=== PATIENT | male | born 1975 | race Caucasian/White ===

== ENCOUNTER 2021-12-20 14:17 | Outpatient (NON) | payer BC, SELFPAY | END 2021-12-20 14:18 | disposition home or self-care (01) | PROVIDERS: PCP Family Medicine; Visit Provider Surgery Plastic and Reconstructive Surgery | DX: L72.3 Sebaceous cyst (principal); L08.9 Local infection of the skin and subcutaneous tissue, unspecified | CPT/HCPCS: 87070; 87205 ==

== ENCOUNTER 2022-11-13 10:34 | Outpatient (CLI) | payer BC, SELFPAY ==
--- NOTE | ~2022-11-13 | CT_ITS ---
CT of the Abdomen and Pelvis: Indication: Abdominal pain Technique: 2.5 mm axial scans were obtained through the abdomen and pelvis following intravenous adm inistration of 100 cc of Omnipaque 350. Dose reduction technique was used on this scan by utilizing a utomated exposure control and iterative reconstruction technique. The dose-length product (DLP) was 4 91.50 mGy-cm. COMPARISON: 09/03/2016 Findings: Scans through the lung bases demonstrate mild right basilar atelectasis or scarring. The liver, spleen, pancreas, gallbladder, adrenals and kidneys are within normal limits. No evidence of aortic aneurysm. No lymphadenopathy. There is wall thickening and pericolonic inflammatory change of the distal descending colon, centered about a prominent diverticulum, consistent with acute epididymitis. No abscess or free air evident. No bowel obstruction. Images through the pelvis were performed. Urinary bladder unremarkable. Prostate gland and seminal ve sicles are unremarkable. No ascites. Impression: Acute diverticulitis of the distal descending colon. No abscess or free air. Reviewed, dictated and finalized at [facility]. Impression: Acute diverticulitis of the distal descending colon. No abscess or free air.
== END 2022-11-13 10:35 | disposition home or self-care (01) ==
PROVIDERS: PCP Family Medicine; Visit Provider Nurse Practitioner
DX: K57.32 Diverticulitis of large intestine without perforation or abscess without bleeding (principal); R31.9 Hematuria, unspecified
CPT/HCPCS: 74177; 87086; Q9967

== ENCOUNTER 2023-04-15 08:00 | Outpatient (NON) | payer BC, SELFPAY | END 2023-04-15 08:01 | disposition home or self-care (01) | PROVIDERS: PCP Family Medicine; Visit Provider Nurse Practitioner | DX: L72.0 Epidermal cyst (principal) | CPT/HCPCS: 88304 ==

== ENCOUNTER 2023-11-01 00:26 | Day surgery (SDC) | payer BC, SELFPAY ==
[2023-10-21 13:21] VITALS: BMI 26.0
--- NOTE | 2023-10-30 14:58 | SUR.PREOP ---
Patient called regarding upcoming procedure. Reviewed preop instructions, appointment times, and procedure prep.
[2023-11-01 10:59] VITALS: BP 120/73; PULSE 84; RESP 14; TEMP 36.3; O2SAT 98
[2023-11-01] MEDS: LACTATED RINGERS 1,000 ML 150 ML IV CONT (11:06)
--- NOTE | 2023-11-01 11:07 | PM.HPGS ---
History of Present Illness History of Present Illness Consent: Risks, benefits, and alternatives have been discussed and questions answered. Patient agrees to proceed with procedure. Chief complaint: neoplasm screening Narrative: Audie Dixon is a 48 year old male here for first screening colonoscopy Review of Systems Review of Systems: All systems reviewed & are unremarkable except as noted in HPI and below PMFSH Past Medical History Medical History (Updated 11/01/23 @ 11:08 by Shahab Reed MD) Abscess of back Colon cancer screening Diverticulitis (~2015) Dyslipidemia Overweight Thrush, oral Vitamin D deficiency Surgical History Surgical History S/P laparoscopic-assisted sigmoidectomy (~08/2016) Diverticulitis with abscess - Dr Raymond Family History Family History Mother Family history of colonic diverticulitis Other Family history of cardiovascular disease Family history of kidney stones Hypertension Social History Social History Smoking packs per day: 0.25 Smoking cigarettes per day: 5.0 Years smoked: 30 Smoking pack-years: 7.50 Smoking status: Current every day smoker Tobacco type: cigarettes Second hand tobacco smoke exposure: No Smoking end date: 07/29/09 Alcohol intake: current Alcohol use details: socially Substance use: never Substance use type: does not use Lack of Transportation: No Lack of Food: Never True Current Housing: I Have Housing Concerned About Future Housing: No Difficulty Paying Gas/Electric Bills: No Difficulty Paying for Meds: No Currently Unemployed: No Education: High School Diploma/GED Difficulty w/ Childcare or Family Care: No Living arrangements: with family Additional living arrangements comments: Occupation/Education: occupation Gender identity (if verbalized by the patient): Male Sexual Orientation (if Verbalized by the Patient): Straight or Heterosexual Spiritual care concerns: No Agree to blood products: Yes Meds Home Medications and Allergies Home Medications Medication Instructions Recorded Confirmed Type multivitamin 1 tablet PO DAILY 03/21/23 10/21/23 History cholecalciferol (vitamin D3) 1,250 1,250 mcg PO WEEKLY #12 tabs 08/23/23 10/21/23 Rx mcg (50,000 unit) tablet atorvastatin 10 mg tablet (Lipitor) 10 mg PO QHS #90 tabs 09/02/23 10/21/23 Rx fenofibrate 160 mg tablet 160 mg PO DAILY #90 tabs 09/02/23 10/21/23 Rx Allergies Allergy/AdvReac Type Severity Reaction Status Date / Time sulfamethizole Allergy Unknown Skin Verified 11/01/23 10:58 burning trimethoprim Allergy Unknown Skin Verified 11/01/23 10:58 burning Vital Signs Vital Signs - 24 hr 11/01/23 10:59 Temperature 97.4 F L Pulse Rate 84 Respiratory Rate 14 Blood Pressure 120/73 Pulse Oximetry 98 Oxygen Delivery Room Air Exam Const: General: comfortable and no acute distress HENMT: Face/Nose/Sinus: Normal nares present Eyes: General: appearance normal, both eyes and all related structures Neck: Neck: no JVD Resp: Auscultation: clear to auscultation bilaterally Cardio: Rate: regular rate Rhythm: regular rhythm GI: Inspection: non-distended GI Palp: Yes Soft to palpation Skin: General skin exam: normal color Neuro: General: gait normal Speech: normal speech Extrem: General: normal to inspection Psych: Mental Status: mental status grossly normal Assessment and Plan Assessment and plan (1) Colon cancer screening: Code(s): Z12.11 - Encounter for screening for malignant neoplasm of colon Status: Acute Assessment and Plan: colonoscopy
--- NOTE | 2023-11-01 11:09 | WPDANESEPPF ---
Anes - Initial Pre Proc Eval Procedure: Operation Date: 11/01/23 12:30 Proposed Procedures p Screening Colonoscopy - Shahab Reed MD Date/Time: 11/01/23 11:09 Surgeon: Shahab Reed MD Pre Op Diagnosis: neoplasm screening Patient Data Age: 48 Gender: M Height: 1.75 m Weight: 81.9 kg Last Vital Signs Temp 97.4 F L 11/01/23 10:59 Pulse 84 11/01/23 10:59 Resp 14 11/01/23 10:59 BP 120/73 11/01/23 10:59 Pulse Ox 98 11/01/23 10:59 O2 Del Method Room Air 11/01/23 10:59 Allergies Allergy/AdvReac Type Severity Reaction Status Date / Time sulfamethizole Allergy Unknown Skin Verified 11/01/23 10:58 burning trimethoprim Allergy Unknown Skin Verified 11/01/23 10:58 burning Home Medications Medication Instructions Recorded Confirmed Type multivitamin 1 tablet PO DAILY 03/21/23 10/21/23 History cholecalciferol (vitamin D3) 1,250 1,250 mcg PO WEEKLY #12 tabs 08/23/23 10/21/23 Rx mcg (50,000 unit) tablet atorvastatin 10 mg tablet (Lipitor) 10 mg PO QHS #90 tabs 09/02/23 10/21/23 Rx fenofibrate 160 mg tablet 160 mg PO DAILY #90 tabs 09/02/23 10/21/23 Rx Patient hx anesthesia problems: none Family hx anesthesia problems: none Results Review: All pre-operative results and documents have been reviewed as part of the pre-operative evaluation. [facility] Past Medical History Medical History (Updated 11/01/23 @ 11:08 by Shahab Reed MD) Abscess of back Colon cancer screening Diverticulitis (~2015) Dyslipidemia Overweight Thrush, oral Vitamin D deficiency Surgical History Surgical History S/P laparoscopic-assisted sigmoidectomy (~08/2016) Diverticulitis with abscess - Dr Raymond Family History Family History Mother Family history of colonic diverticulitis Other Family history of cardiovascular disease Family history of kidney stones Hypertension Social History Social History Smoking packs per day: 0.25 Smoking cigarettes per day: 5.0 Years smoked: 30 Smoking pack-years: 7.50 Smoking status: Current every day smoker Tobacco type: cigarettes Second hand tobacco smoke exposure: No Smoking end date: 07/29/09 Alcohol intake: current Alcohol use details: socially Substance use: never Substance use type: does not use Lack of Transportation: No Lack of Food: Never True Current Housing: I Have Housing Concerned About Future Housing: No Difficulty Paying Gas/Electric Bills: No Difficulty Paying for Meds: No Currently Unemployed: No Education: High School Diploma/GED Difficulty w/ Childcare or Family Care: No Living arrangements: with family Additional living arrangements comments: Occupation/Education: occupation Gender identity (if verbalized by the patient): Male Sexual Orientation (if Verbalized by the Patient): Straight or Heterosexual Spiritual care concerns: No Agree to blood products: Yes Anes - Eval Final PreProcedure Day of Procedure 11/01/23 11:09 Patient weight: normal Heart: regular rate and rhythm Lungs: clear to auscultation Airway: Mallampati scale class II Neurological: alert and oriented Last oral intake: >/= 8 hours ASA classification: II Emergent: no Anesthetic plan: proceed Anesthesia type and monitoring: general GIVS and standard monitoring Results Review: All pre-operative results and documents have been reviewed as part of the pre-operative evaluation. Informed Consent: The patient's anesthetic plan and its attendant risks and benefits were discussed with the patient/family/POA. Questions were solicited and answers provided to the satisfaction of the patient/family/POA.
[2023-11-01 11:23] VITALS: BP 98/64; PULSE 82; RESP 21; O2SAT 97
[2023-11-01 11:33] VITALS: BP 110/60; PULSE 79; RESP 19; O2SAT 98
[2023-11-01 11:43] VITALS: BP 112/71; PULSE 72; RESP 24; O2SAT 97
== END 2023-11-01 11:49 | disposition home or self-care (01) ==
PROVIDERS: PCP Family Medicine; Visit Provider Internal Medicine Gastroenterology
PROC: 0DJD8ZZ Inspection of Lower Intestinal Tract, Via Natural or Artificial Opening Endoscopic (ICD-10-PCS; CPT 45378; principal; 2023-11-01 12:30)
DX: Z12.11 Encounter for screening for malignant neoplasm of colon (principal); K63.5 Polyp of colon; K57.30 Diverticulosis of large intestine without perforation or abscess without bleeding; K64.8 Other hemorrhoids; E78.5 Hyperlipidemia, unspecified; F17.210 Nicotine dependence, cigarettes, uncomplicated
CPT/HCPCS: 45385; 88305; J2704; J7120

== ENCOUNTER 2025-01-09 19:21 | Emergency (ER) | payer BC, SELFPAY ==
--- NOTE | 2025-01-09 19:28 | ED_ITS ---
HPI - General Adult General Chief complaint: Unspecified Stated complaint: food stuck in throat Time Seen by Provider: 01/09/25 19:29 Source: patient Mode of arrival: ambulatory Limitations: no limitations History of Present Illness HPI narrative: 49-year-old male presents concern for obstruction in his esophagus. Reports he was eating [employer] about 2 hours prior to arrival when he felt food gets stuck. He reports he has tried drinking to past the obstruction without success. Reports this has happened to him multiple times in the past he has been able to past the obstruction. He reports difficulty swallowing his spit. He denies any difficulty breathing. Does not know of a history of GERD. complaint: Food bolus Related Data Home Medications ?Medication ?Instructions ?Recorded ?Confirmed ?Last Taken ?Type multivitamin 1 tablet PO DAILY 03/21/23 09/02/24 Unknown History cholecalciferol (vitamin D3) 25 50 mcg PO DAILY 09/02/24 09/02/24 Unknown History mcg (1,000 unit) capsule Allergies Allergy/AdvReac Type Severity Reaction Status Date / Time sulfamethizole Allergy Unknown Skin Verified 01/09/25 19:27 burning trimethoprim Allergy Unknown Skin Verified 01/09/25 19:27 burning Review of Systems Review of Systems: CONSTITUTIONAL: Denies malaise, chills, sweats, or fever. ENT: Reports esophageal obstruction. Reports difficulty swallowing his saliva CARDIOVASCULAR: Reports midsternal chest pain. Denies palpitations or edema. RESPIRATORY: Denies cough or dyspnea. GASTROINTESTINAL: Denies abdominal pain, nausea, vomiting, diarrhe All systems reviewed & are unremarkable except as noted in HPI and below PMFSH Past Medical History Medical History Vitamin D deficiency Abscess of back Dyslipidemia Diverticulitis (~2015) Surgical History Surgical History S/P laparoscopic-assisted sigmoidectomy (~08/2016) Diverticulitis with abscess - Dr Raymond Family History Family History Mother Family history of colonic diverticulitis Other Family history of cardiovascular disease Family history of kidney stones Hypertension Social History Social History Smoking packs per day: 0.25 Smoking cigarettes per day: 5.0 Years smoked: 30 Smoking pack-years: 7.50 Smoking status: Current every day smoker Tobacco type: cigarettes Second hand tobacco smoke exposure: No Smoking end date: 07/29/09 Alcohol intake: current Alcohol use details: socially Substance use: never Substance use type: does not use Lack of Transportation: No Lack of Food: Never True Current Housing: I Have Housing Concerned About Future Housing: No Difficulty Paying Gas/Electric Bills: No Difficulty Paying for Meds: No Currently Unemployed: No Education: High School Diploma/GED Difficulty w/ Childcare or Family Care: No Living arrangements: with family Additional living arrangements comments: Occupation/Education: occupation Gender identity (if verbalized by the patient): Male Sexual Orientation (if Verbalized by the Patient): Straight or Heterosexual Spiritual care concerns: No Agree to blood products: Yes Comments At time of signature, agree with nursing past medical, surgical, social and family history. There is no relevant family history pertinent to the presenting complaint Exam Narrative: GENERAL: Well-appearing, well-nourished, and in no acute distress. HEAD: Normocephalic, atraumatic. EYES: PERRLA, sclera clear, and EOMI. ENT: Nares clear. Mucous membranes moist. No visible foreign body NECK: Supple. CHEST: No respiratory distress. Clear to auscultation. No bony deformities, no asymmetry. Speaks in full sentences. HEART: Regular rate and rhythm. SKIN: Warm, dry, no visible rash. NEURO: Alert and oriented x3. PSYCH: Normal mood and affect Course Course Emergency Course: Patient is aware of diagnosis, understands and agrees to treatment plan. Anticipatory guidance given. Patient agrees to follow-up as directed and is aware of reasons to seek care at the emergency department. Portions of this record may have been created with voice recognition software Level of Care: Express Care Visit Vital Signs Vital signs: Reviewed. Transfer Transfered to: [place] Transportation: Other (Private vehicle) Transfer rationale: Fluid bolus Accepting physician: Osmani Medical Decision Making MDM Narrative Medical decision making narrative: Patient is nontoxic appearing and in no acute distress Critical Care Time Critical Care Time Critical Care Time: No Discharge Plan Discharge Clinical Impression: Acute esophageal obstruction Patient Disposition: Acute Care Hospital Condition: Stable Patient Language: Albanian Prescriptions: No Action multivitamin Tablet 1 tablet PO DAILY cholecalciferol (vitamin D3) 25 mcg (1,000 unit) capsule 50 mcg PO DAILY atorvastatin [Lipitor] 10 mg tablet 10 mg PO QHS Qty: 90 3RF fenofibrate 160 mg tablet 160 mg PO DAILY Qty: 90 3RF Follow-up/Referrals: Renny Chaudhry MD [Primary Care Provider] - Time of Disposition: 19:37
[2025-01-09 19:29] VITALS: BP 149/88; PULSE 83; RESP 16; TEMP 36.4; O2SAT 98
== END 2025-01-09 19:39 | disposition short-term general hospital (02) ==
PROVIDERS: Emergency Provider Nurse Practitioner; PCP Family Medicine
DX: K22.2 Esophageal obstruction (principal); Z87.891 Personal history of nicotine dependence; E78.5 Hyperlipidemia, unspecified; E55.9 Vitamin D deficiency, unspecified
CPT/HCPCS: 99212; G0463

== ENCOUNTER 2025-01-09 19:55 | Day surgery (SDC) | payer BC, SELFPAY ==
[2025-01-09] VITALS (7 sets, daily range): BP systolic 119–150; BP diastolic 65–100; PULSE 85–101; RESP 16–23; TEMP 36.9–37; O2SAT 99–100
--- NOTE | ~2025-01-09 | XR_ITS ---
CHEST RADIOGRAPH, PA AND LATERAL CLINICAL HISTORY: food bolus . COMPARISON: None available TECHNIQUE: PA and lateral views of the chest. FINDINGS The cardiomediastinal silhouette is unremarkable. The lungs are clear. Visualized osseous structures and soft tissues are unremarkable. IMPRESSION: No focal infiltrate or effusion. Reviewed, dictated and finalized at location A.
--- OUTSIDE RECORDS SUMMARY | 2025-01-09 19:57 | XMS_ITS | Continuity of Care Document ---
Author Organization [facility] Address [address] [place] [address] [address] [place] [address] Phone Care Team Providers Care Leaf Sorter Name Role Phone Raghav CENTENO MD, Arrno Unavailable Unavailable Procedures Procedure Date OFFICE/OUTPATIENT VISIT, [facility] SPECIAL EYE EXAM, INITIAL SPECIAL EYE EXAM, INITIAL Advance Directives Directive Yes / No Effective Date File Name No Information Encounters Encounter Description Practice Location Reason(s) For Visit Diagnoses Date Provider Providers Copied on Encounter OFFICE/OUTPA TIENT VISIT, [facility], [id number] [place] [address] [address], [place], [place], [id number], tel:[phone] [facility] No Information 4 Raghav Heller. [address], [address], [place], [place], [id number] , [place]. [phone] Referring Provider: Arron Avilez MD P, [address], [place], [address] . tel:[phone] Family History Family Member Type Diagnosis Age At Onset No Information Payers Payer name Insurance type Covered republican ID Authoriza tiluan(s) [facility] [id number] Social History Type Description Quantity Date Captured Comments Sex Male Smoking Status No Information Chief Complaint And Reason For Visit No Information Reason For Referral Reason For Referral No Information History Of Present Illness Encounter Date Complaint History Of Prese nt Illness No Information Functional Status Date Functional Assessmen t No Information Instructions Date Instruction Additional Infor mation No Information Assessments Type Assessment Date No Information Patient Care Teams Name Effective Dates (start - stop) Status Members No Information
--- NOTE | 2025-01-09 20:14 | ECG_ITS ---
Test Date: 2025-01-09 20:19:52 Measurements Intervals [place] Rate: 83 P: 40 ND: 175 QRS: -14 QRSD: 101 T: 30 QT: 374 QTc: 441 Interpretive Statements SINUS RHYTHM BASELINE ARTIFACT- I, II, III, AVR, AVL, AVF, V1-V6 NORMAL ECG No previous ECG available for comparison Electronically Signed On 01-09-2025 21:00:33 CDT by Pérez Navarro D.O.
--- OUTSIDE RECORDS SUMMARY | 2025-01-09 20:16 | XMS_ITS | Continuity of Care Document ---
Author Organization [facility] Address [address] [place] [address] [address] [place] [address] Phone Care Team Providers Care Developer Programmer Analyst Name Role Phone Raghav CENTENO MD, Arron Unavailable Unavailable Procedures Procedure Date OFFICE/OUTPATIENT VISIT, [facility] SPECIAL EYE EXAM, INITIAL SPECIAL EYE EXAM, INITIAL Advance Directives Directive Yes / No Effective Date File Name No Information Encounters Encounter Description Practice Location Reason(s) For Visit Diagnoses Date Provider Providers Copied on Encounter OFFICE/OUTPA TIENT VISIT, [facility], [id number] [place] [address] [address], [place], [place], [id number], tel:[phone] [facility] No Information 4 Raghav Heller. [address], [address], [place], [place], [id number] , [place]. [phone] Referring Provider: Arron Avilez MD P, [address], [place], [address] . tel:[phone] Family History Family Member Type Diagnosis Age At Onset No Information Payers Payer name Insurance type Covered libertarian ID Authoriza tiluan(s) [facility] [id number] Social History Type Description Quantity Date Captured [...]
[2025-01-09 20:23] LABS: Basophils Absolute Auto 0.1 K/mm3 (0.0-0.1); Basophils Percent Auto 0.5 % (0.2-1.2); Eosinophils Absolute Auto 0.5 K/mm3 (0-0.3); Eosinophils Percent Auto 2.6 % (0-4.4); Hemoglobin 14.1 g/dL (14.0-18.0); Immature Granulocyte Absolute 0.08 K/mm3 (0.00-0.031); Immature Granulocyte Percent A 0.4 % (0-0.5); Lymphocytes Absolute Auto 2.49 K/mm3 (0.9-3.2); Lymphocytes Percent Auto 13.8 % (18.3-44.2); Mean Corpuscular HGB Conc 32.8 g/dl (32-36); Mean Corpuscular Hemoglobin 29.3 pg (26-34); Mean Corpuscular Volume 89.2 fl (80-100); Mean Platelet Volume 10.4 fl (7.4-10.4); Monocytes Absolute Auto 0.7 K/mm3 (0.1-0.6); Monocytes Percent Auto 3.7 % (2.6-8.5); Neutrophils Absolute Auto 14.2 K/mm3 (1.3-6.7); Platelet Count Result 306 k/mm3 (150-375); Red Blood Count 4.82 M/mm3 (4.6-6.20); Red Cell Distribution Width 12.5 % (11.5-14.5)
--- NOTE | 2025-01-09 20:33 | ED_ITS ---
HPI - General Adult General Chief complaint: Unspecified Stated complaint: food bolus Time Seen by Provider: 01/09/25 19:57 History of Present Illness HPI narrative: Around 430 today, patient went to [employer], was eating chicken nuggets and felt like it got stuck, this has happened in the past but usually eventually goes down, however after several hours still feels like it is stuck in his chest. Trying to swallow liquids but chokes Related Data Home Medications ?Medication ?Instructions ?Recorded ?Confirmed ?Last Taken ?Type multivitamin 1 tablet PO DAILY 03/21/23 09/02/24 Unknown History cholecalciferol (vitamin D3) 25 50 mcg PO DAILY 09/02/24 09/02/24 Unknown History mcg (1,000 unit) capsule Allergies Allergy/AdvReac Type Severity Reaction Status Date / Time sulfamethizole Allergy Unknown Skin Verified 01/09/25 20:05 burning trimethoprim Allergy Unknown Skin Verified 01/09/25 20:05 burning Review of Systems 2 Review of Systems: All systems reviewed & are unremarkable except as noted in HPI and below PMFSH Past Medical History Medical History Vitamin D deficiency Abscess of back Dyslipidemia Diverticulitis (~2015) Surgical History Surgical History S/P laparoscopic-assisted sigmoidectomy (~08/2016) Diverticulitis with abscess - Dr Raymond Family History Family History Mother Family history of colonic diverticulitis Other Family history of cardiovascular disease Family history of kidney stones Hypertension Social History Social History Smoking packs per day: 0.25 Smoking cigarettes per day: 5.0 Years smoked: 30 Smoking pack-years: 7.50 Smoking status: Current every day smoker Tobacco type: cigarettes Second hand tobacco smoke exposure: No Smoking end date: 07/29/09 Alcohol intake: current Alcohol use details: socially Substance use: never Substance use type: does not use Lack of Transportation: No Lack of Food: Never True Current Housing: I Have Housing Concerned About Future Housing: No Difficulty Paying Gas/Electric Bills: No Difficulty Paying for Meds: No Currently Unemployed: No Education: High School Diploma/GED Difficulty w/ Childcare or Family Care: No Living arrangements: with family Additional living arrangements comments: Occupation/Education: occupation Gender identity (if verbalized by the patient): Male Sexual Orientation (if Verbalized by the Patient): Straight or Heterosexual Spiritual care concerns: No Agree to blood products: Yes Exam 2 Narrative: EXAMINATION OF ORGAN SYSTEMS/BODY AREAS: Constitutional: Vital signs per nursing GENERAL:[No acute distress, non-toxic appearing.] HEAD: Normal with no signs of head trauma. EYES: EOMI, conjunctiva normal ENT: Hearing grossly intact LUNGS: Nonlabored breathing. HEART: [Regular rate and rhythm] ABD: [Soft], [nontender to palpation] EXT: Normal range of motion SKIN: [No rashes or lesions.] NEURO: [Alert and oriented x 3. No gross focal sensory or strength deficits.] PSYCH: Normal affect Course Vital Signs Vital signs: Vital Signs Temperature 98.4 F 01/09/25 19:59 Pulse Rate 86 01/09/25 19:59 Respiratory Rate 16 01/09/25 19:59 Blood Pressure 150/100 H 01/09/25 19:59 Pulse Oximetry 100 01/09/25 19:59 Oxygen Delivery Room Air 01/09/25 19:59 Temperature 98.4 F 01/09/25 19:59 Pulse Rate 86 01/09/25 19:59 Respiratory Rate 16 01/09/25 19:59 Blood Pressure 150/100 H 01/09/25 19:59 Pulse Oximetry 100 01/09/25 19:59 Oxygen Delivery Room Air 01/09/25 19:59 Medical Decision Making MDM Narrative Medical decision making narrative: Patient presents with concern for food bolus, I did try giving him a soda and have him hop however it feels like it just catches in his throat and he is coughing and choking. GI contacted, while waiting for call back, I did obtain EKG to rule out cardiac cause, on my independent interpretation of EKG at 8:19 p.m., normal sinus rhythm rate 83, CO 175, QRS 101, QTC 414. CXR on my independent interpretation appears clear. D/w Dr Reyes who will take him to GI lab. Vital Signs Vital Signs: Vital Signs Temperature 98.4 F 01/09/25 19:59 Pulse Rate 86 01/09/25 19:59 Respiratory Rate 16 01/09/25 19:59 Blood Pressure 150/100 H 01/09/25 19:59 Pulse Oximetry 100 01/09/25 19:59 Oxygen Delivery Room Air 01/09/25 19:59 Temperature 98.4 F 01/09/25 19:59 Pulse Rate 86 01/09/25 19:59 Respiratory Rate 16 01/09/25 19:59 Blood Pressure 150/100 H 01/09/25 19:59 Pulse Oximetry 100 01/09/25 19:59 Oxygen Delivery Room Air 01/09/25 19:59 Lab Data 01/09/25 20:18 01/09/25 20:18 Labs: Lab Results 01/09/25 Range/Units 20:18 WBC 18.0 H (4.5-10.0) K/mm3 RBC 4.82 (4.6-6.20) M/mm3 Hgb 14.1 (14.0-18.0) g/dL Hct 43.0 (42.0-52.0) % MCV 89.2 (80-100) fl MCH 29.3 (26-34) pg MCHC 32.8 (32-36) g/dl RDW 12.5 (11.5-14.5) % Plt Count 306 (150-375) k/mm3 MPV 10.4 (7.4-10.4) fl Immature Gran % (Auto) 0.4 (0-0.5) % Neut % (Auto) 79.0 H (45.5-73.1) % Lymph % (Auto) 13.8 L (18.3-44.2) % [place] % (Auto) 3.7 (2.6-8.5) % Eos % (Auto) 2.6 (0-4.4) % Baso % (Auto) 0.5 (0.2-1.2) % Lymph # (Auto) 2.49 (0.9-3.2) K/mm3 [place] # (Auto) 0.7 H (0.1-0.6) K/mm3 Eos # (Auto) 0.5 H (0-0.3) K/mm3 Baso # (Auto) 0.1 (0.0-0.1) K/mm3 Abs Immat Gran (auto) 0.08 H (0.00-0.031) K/mm3 Absolute Neuts (auto) 14.2 H (1.3-6.7) K/mm3 Absolute Nucleated RBC 0.000 (0.0-0.012) K/mm3 Nucleated RBC % 0.0 (0.0-0.2) % Sodium 144 (137-145) mmol/L Potassium 4.2 (3.4-5.0) mmol/L Chloride 107 (98-107) mmol/L Carbon Dioxide 27 (22-30) mmol/L Anion Gap 10 (4-12) mmol/L BUN 10 (9-20) mg/dL Creatinine 1.13 (0.7-1.3) mg/dL Estim Creat Clear Calc Not Reportable Estimated GFR > 60 (59 - ) Glucose 105 (65-110) mg/dL Calcium 9.7 (8.4-10.2) mg/dL Discharge Plan Discharge Clinical Impression: Acute esophageal obstruction Patient Disposition: Still a Patient Condition: Serious Patient Language: Turkmen Prescriptions: No Action multivitamin Tablet 1 tablet PO DAILY cholecalciferol (vitamin D3) 25 mcg (1,000 unit) capsule 50 mcg PO DAILY atorvastatin [Lipitor] 10 mg tablet 10 mg PO QHS Qty: 90 3RF fenofibrate 160 mg tablet 160 mg PO DAILY Qty: 90 3RF Follow-up/Referrals: Renny Chaudhry MD [Primary Care Provider] -
[2025-01-09 20:34] LABS: Anion Gap 10 mmol/L (4-12); Blood Urea Nitrogen 10 mg/dL (9-20); Calcium 9.7 mg/dL (8.4-10.2); Carbon Dioxide 27 mmol/L (22-30); Chloride 107 mmol/L (98-107); Estimated Glomerular Filt Rate > 60; Glucose 105 mg/dL (65-110); Potassium 4.2 mmol/L (3.4-5.0); Sodium 144 mmol/L (137-145)
--- NOTE | 2025-01-09 20:37 | PC.NURSE ---
Patient placed in gown, IV placed, labs sent and patient ready for GI.
--- NOTE | 2025-01-09 21:52 | PM.HPGS ---
History of Present Illness History of Present Illness Consent: Risks, benefits, and alternatives have been discussed and questions answered. Patient agrees to proceed with procedure. Chief complaint: food bolus Narrative: Audie Dixon is a 49 year old male here for food bolus, had chicken for dinner and now can not swallow anymore, never had egd Review of Systems Review of Systems: All systems reviewed & are unremarkable except as noted in HPI and below PMFSH Past Medical History Medical History Vitamin D deficiency Abscess of back Dyslipidemia Diverticulitis (~2015) Surgical History Surgical History S/P laparoscopic-assisted sigmoidectomy (~08/2016) Diverticulitis with abscess - Dr Raymond Family History Family History Mother Family history of colonic diverticulitis Other Family history of cardiovascular disease Family history of kidney stones Hypertension Social History Social History Smoking packs per day: 0.25 Smoking cigarettes per day: 5.0 Years smoked: 30 Smoking pack-years: 7.50 Smoking status: Current every day smoker Tobacco type: cigarettes Second hand tobacco smoke exposure: No Smoking end date: 07/29/09 Alcohol intake: current Alcohol use details: socially Substance use: never Substance use type: does not use Lack of Transportation: No Lack of Food: Never True Current Housing: I Have Housing Concerned About Future Housing: No Difficulty Paying Gas/Electric Bills: No Difficulty Paying for Meds: No Currently Unemployed: No Education: High School Diploma/GED Difficulty w/ Childcare or Family Care: No Living arrangements: with family Additional living arrangements comments: Occupation/Education: occupation Gender identity (if verbalized by the patient): Male Sexual Orientation (if Verbalized by the Patient): Straight or Heterosexual Spiritual care concerns: No Agree to blood products: Yes Meds Home Medications and Allergies Home Medications ?Medication ?Instructions ?Recorded ?Confirmed ?Type multivitamin 1 tablet PO DAILY 03/21/23 09/02/24 History atorvastatin 10 mg tablet (Lipitor) 10 mg PO QHS #90 tabs 09/02/24 09/02/24 Rx cholecalciferol (vitamin D3) 25 50 mcg PO DAILY 09/02/24 09/02/24 History mcg (1,000 unit) capsule fenofibrate 160 mg tablet 160 mg PO DAILY #90 tabs 09/02/24 09/02/24 Rx Allergies Allergy/AdvReac Type Severity Reaction Status Date / Time sulfamethizole Allergy Unknown Skin Verified 01/09/25 20:05 burning trimethoprim Allergy Unknown Skin Verified 01/09/25 20:05 burning Vital Signs Vital Signs - 24 hr 01/09/25 19:59 Temperature 98.4 F Pulse Rate 86 Respiratory Rate 16 Blood Pressure 150/100 H Pulse Oximetry 100 Oxygen Delivery Room Air Exam Const: General: comfortable and no acute distress HENMT: Face/Nose/Sinus: Normal nares present Eyes: General: appearance normal, both eyes and all related structures Neck: Neck: no JVD Resp: Auscultation: clear to auscultation bilaterally Cardio: Rate: regular rate Rhythm: regular rhythm GI: Inspection: non-distended GI Palp: Yes Soft to palpation Skin: General skin exam: normal color Neuro: General: gait normal Speech: normal speech Extrem: General: normal to inspection Psych: Mental Status: mental status grossly normal Assessment and Plan Assessment and plan (1) Acute esophageal obstruction: Code(s): K22.2 - Esophageal obstruction Status: Acute Assessment and Plan: urgent egd
--- NOTE | 2025-01-09 22:07 | P.PNAN_ITS ---
Anes - Initial Pre Proc Eval Procedure: Operation Date: 01/09/25 21:30 Proposed Procedures p Esophagogastroduodenoscopy - Shahab Reed MD Date/Time: 01/09/25 22:07 Pre Op Diagnosis: food bolus Patient Data Age: 49 Gender: M Height: Weight: Last Vital Signs Temp 36.9 C 01/09/25 19:59 Pulse 86 01/09/25 19:59 Resp 16 01/09/25 19:59 BP 150/100 H 01/09/25 19:59 Pulse Ox 100 01/09/25 19:59 O2 Del Method Room Air 01/09/25 19:59 Allergies Allergy/AdvReac Type Severity Reaction Status Date / Time sulfamethizole Allergy Unknown Skin Verified 01/09/25 20:05 burning trimethoprim Allergy Unknown Skin Verified 01/09/25 20:05 burning Home Medications ?Medication ?Instructions ?Recorded ?Confirmed ?Type multivitamin 1 tablet PO DAILY 03/21/23 09/02/24 History atorvastatin 10 mg tablet (Lipitor) 10 mg PO QHS #90 tabs 09/02/24 09/02/24 Rx cholecalciferol (vitamin D3) 25 50 mcg PO DAILY 09/02/24 09/02/24 History mcg (1,000 unit) capsule fenofibrate 160 mg tablet 160 mg PO DAILY #90 tabs 09/02/24 09/02/24 Rx Laboratory Tests 01/09/25 20:18 WBC 18.0 H K/mm3 (4.5-10.0) RBC 4.82 M/mm3 (4.6-6.20) Hgb 14.1 g/dL (14.0-18.0) Hct 43.0 % (42.0-52.0) MCV 89.2 fl (80-100) MCH 29.3 pg (26-34) MCHC 32.8 g/dl (32-36) RDW 12.5 % (11.5-14.5) Plt Count 306 k/mm3 (150-375) MPV 10.4 fl (7.4-10.4) Immature Gran % (Auto) 0.4 % (0-0.5) Neut % (Auto) 79.0 H % (45.5-73.1) Lymph % (Auto) 13.8 L % (18.3-44.2) Irwin % (Auto) 3.7 % (2.6-8.5) Eos % (Auto) 2.6 % (0-4.4) Baso % (Auto) 0.5 % (0.2-1.2) Lymph # (Auto) 2.49 K/mm3 (0.9-3.2) Irwin # (Auto) 0.7 H K/mm3 (0.1-0.6) Eos # (Auto) 0.5 H K/mm3 (0-0.3) Baso # (Auto) 0.1 K/mm3 (0.0-0.1) Abs Immat Gran (auto) 0.08 H K/mm3 (0.00-0.031) Absolute Neuts (auto) 14.2 H K/mm3 (1.3-6.7) Absolute Nucleated RBC 0.000 K/mm3 (0.0-0.012) Nucleated RBC % 0.0 % (0.0-0.2) Sodium 144 mmol/L (137-145) Potassium 4.2 mmol/L (3.4-5.0) Chloride 107 mmol/L (98-107) Carbon Dioxide 27 mmol/L (22-30) Anion Gap 10 mmol/L (4-12) BUN 10 mg/dL (9-20) Creatinine 1.13 mg/dL (0.7-1.3) Estim Creat Clear Calc Not Reportable Estimated GFR > 60 (59 - ) Glucose 105 mg/dL (65-110) Calcium 9.7 mg/dL (8.4-10.2) Patient hx anesthesia problems: none Family hx anesthesia problems: none Results Review: All pre-operative results and documents have been reviewed as part of the pre- operative evaluation. [facility] Past Medical History Medical History Vitamin D deficiency Abscess of back Dyslipidemia Diverticulitis (~2015) Surgical History Surgical History S/P laparoscopic-assisted sigmoidectomy (~08/2016) Diverticulitis with abscess - Dr Raymond Family History Family History Mother Family history of colonic diverticulitis Other Family history of cardiovascular disease Family history of kidney stones Hypertension Social History Social History Smoking packs per day: 0.25 Smoking cigarettes per day: 5.0 Years smoked: 30 Smoking pack-years: 7.50 Smoking status: Current every day smoker Tobacco type: cigarettes Second hand tobacco smoke exposure: No Smoking end date: 07/29/09 Alcohol intake: current Alcohol use details: socially Substance use: never Substance use type: does not use Lack of Transportation: No Lack of Food: Never True Current Housing: I Have Housing Concerned About Future Housing: No Difficulty Paying Gas/Electric Bills: No Difficulty Paying for Meds: No Currently Unemployed: No Education: High School Diploma/GED Difficulty w/ Childcare or Family Care: No Living arrangements: with family Additional living arrangements comments: Occupation/Education: occupation Gender identity (if verbalized by the patient): Male Sexual Orientation (if Verbalized by the Patient): Straight or Heterosexual Spiritual care concerns: No Agree to blood products: Yes Anes - Eval Final PreProcedure Day of Procedure 01/09/25 22:07 Patient weight: overweight Heart: regular rate and rhythm Lungs: clear to auscultation Neurological: alert and oriented Last oral intake: 6 hours ASA classification: II Emergent: yes Anesthetic plan: proceed Anesthesia type and monitoring: general Results Review: All pre-operative results and documents have been reviewed as part of the pre- operative evaluation. Informed Consent: The patient's anesthetic plan and its attendant risks and benefits were discussed with the patient/family/POA. Questions were solicited and answers provided to the satisfaction of the patient/family/POA.
[2025-01-09] MEDS: LACTATED RINGERS 1,000 ML 150 ML IV CONT (22:11)
--- NOTE | 2025-01-09 22:17 | S_PTH ---
PATIENT: Audie Dixon LOC: [facility]#:[id number] AGE/SX: 49/M ROOM: RE01/09/[address]: Shahab Reed MD : 1975 BED: DIS: SPEC #: [id number] RECD: 01/11/25 07:48 STATUS: CHENTE BACK #: [id number] RED: 01/09/25 22:[address]: Shahab Reed DEPT: [facility] Surgical RECD BY: Corrine Sawyer ENTERED: 01/11/25 07:48 SP TYPE: Surgical OTHR DR: MD Zeynep Flor MD Tissues: A - Gastric Biopsy B - Esophageal Biopsy Procedures: Hematoxylin and Eosin Stain Gross and Microscopic Level 4
--- NOTE | 2025-01-09 23:08 | SUR.PHASEII ---
dr malathi wilkersonayed pt to be discharged after recovery. unable to put in discharge order, pt was discharged from er so unable to place order. house superviser notified. no one available in registration.
--- NOTE | 2025-01-09 23:42 | SUR.PHASEII ---
discharge instructions reviewed with pt and , voiced understanding. discharged per w/c.
--- OUTSIDE RECORDS SUMMARY | 2025-01-11 08:32 | XMS_ITS | Continuity of Care Document ---
Author Organization [facility] Address [address] [place] [address] [address] [place] [address] Phone Care Team Providers Care President And Cmo Name Role Phone Raghav CENTENO MD, Arron Unavailable Unavailable Procedures Procedure Date OFFICE/OUTPATIENT VISIT, [facility] SPECIAL EYE EXAM, INITIAL SPECIAL EYE EXAM, INITIAL Advance Directives Directive Yes / No Effective Date File Name No Information Encounters Encounter Description Practice Location Reason(s) For Visit Diagnoses Date Provider Providers Copied on Encounter OFFICE/OUTPA TIENT VISIT, [facility], [address] [address] [address], [place], [place], [id number], tel:[phone] [facility] No Information 4 Raghav Heller. [address], [address], [place], [place], [address] , [place]. [phone] Referring Provider: Arron Avilez MD P, [address], [place], [address] . tel:[phone] Family History Family Member Type Diagnosis Age At Onset No Information Payers Payer name Insurance type Covered constitution party ID Authoriza tiluan(s) [facility] [id number] Social History Type Description Quantity Date Captured [...]
== END 2025-01-09 20:30 ==
LOC: ANHED 21:14 → ANHENDO 01-11 08:24
PROVIDERS: Emergency Provider Emergency Medicine; PCP Family Medicine; Visit Provider Internal Medicine Gastroenterology
PROC: 0DJ08ZZ Inspection of Upper Intestinal Tract, Via Natural or Artificial Opening Endoscopic (ICD-10-PCS; CPT 43247; principal; 2025-01-09 21:30)
DX: K20.0 Eosinophilic esophagitis (principal); E78.5 Hyperlipidemia, unspecified; E55.9 Vitamin D deficiency, unspecified; F17.210 Nicotine dependence, cigarettes, uncomplicated; Z98.890 Other specified postprocedural states; Z87.19 Personal history of other diseases of the digestive system; Z82.49 Family history of ischemic heart disease and other diseases of the circulatory system
CPT/HCPCS: 43247; 43249; 36415; 71046; 80048; 85025; 88305; 93005; 99285; J1100; J2003; J2405; J2704; J7120

== ENCOUNTER 2025-03-11 01:38 | Day surgery (SDC) | payer BC, SELFPAY ==
[2025-02-23 10:49] VITALS: BMI 25.8
--- OUTSIDE RECORDS SUMMARY | 2025-03-11 01:40 | XMS_ITS | Continuity of Care Document ---
Author [facility] Address [address] [place] [address] [address] [place] [address] Phone Care Team Providers Care Architect Internship Name Role Phone Raghav CENTENO MD, Arron Unavailable Unavailable Procedures Procedure Date OFFICE/OUTPATIENT VISIT, [facility] SPECIAL EYE EXAM, INITIAL SPECIAL EYE EXAM, INITIAL Advance Directives Directive Yes / No Effective Date File Name No Information Encounters Encounter Description Practice Location Reason(s) For Visit Diagnoses Date Provider Providers Copied on Encounter OFFICE/OUTPA TIENT VISIT, [facility], [address] [place] [address] [address], [place], [place], [id number], tel:[phone] [facility] No Information 4 Raghav Heller. [address], [place], [place], [address] , [place]. [phone] Referring Provider: Arron Avilez MD P, [address], [place], [address] . tel:[phone] Family History Family Member Type Diagnosis Age At Onset No Information Payers Payer name Insurance type Covered democrat ID Authoriza tiluan(s) [facility] [id number] Social History Type Description Quantity Date Captured [...]
--- NOTE | 2025-03-11 08:59 | P.PNAN_ITS ---
Anes - Initial Pre Proc Eval Procedure: Operation Date: 03/11/25 14:15 Proposed Procedures p Esophagogastroduodenoscopy - Shahab Reed MD Date/Time: 03/11/25 08:59 Surgeon: Shahab Reed MD Pre Op Diagnosis: Dysphagia, unspecified Patient Data Age: 49 Gender: M Height: 1.75 m Weight: 79.4 kg Allergies Allergy/AdvReac Type Severity Reaction Status Date / Time sulfamethizole Allergy Unknown Skin Verified 03/11/25 13:46 burning trimethoprim Allergy Unknown Skin Verified 03/11/25 13:46 burning Home Medications ?Medication ?Instructions ?Recorded ?Confirmed ?Type multivitamin 1 tablet PO DAILY 03/21/23 03/11/25 History atorvastatin 10 mg tablet (Lipitor) 10 mg PO QHS #90 tabs 09/02/24 03/11/25 Rx cholecalciferol (vitamin D3) 25 50 mcg PO DAILY 09/02/24 03/11/25 History mcg (1,000 unit) capsule fenofibrate 160 mg tablet 160 mg PO DAILY #90 tabs 09/02/24 03/11/25 Rx omeprazole 20 mg capsule,delayed 20 mg PO DAILY #30 caps 01/09/25 03/11/25 Rx release Patient hx anesthesia problems: none Family hx anesthesia problems: none Results Review: All pre-operative results and documents have been reviewed as part of the pre- operative evaluation. [facility] Past Medical History Medical History (Updated 01/10/25 @ 00:01 by Mirta Hargrove) Dysphagia Vitamin D deficiency Abscess of back Dyslipidemia Diverticulitis (~2015) Surgical History Surgical History S/P laparoscopic-assisted sigmoidectomy (~08/2016) Diverticulitis with abscess - Dr Raymond Family History Family History Mother Family history of colonic diverticulitis Other Family history of cardiovascular disease Family history of kidney stones Hypertension Social History Social History Smoking packs per day: 0.25 Smoking cigarettes per day: 5.0 Years smoked: 20 Smoking pack-years: 5.00 Smoking status: Current every day smoker Tobacco type: cigarettes and e-cigarettes/vaping Second hand tobacco smoke exposure: No Smoking end date: 07/29/09 Alcohol intake: current Drinks per week: 6 Alcohol use details: socially Substance use: never Substance use type: does not use Lack of Transportation: No Lack of Food: Never True Current Housing: I Have Housing Concerned About Future Housing: No Difficulty Paying Gas/Electric Bills: No Difficulty Paying for Meds: No Currently Unemployed: No Education: High School Diploma/GED Difficulty w/ Childcare or Family Care: No Living arrangements: with family Additional living arrangements comments: Occupation/Education: occupation Gender identity (if verbalized by the patient): Male Sexual Orientation (if Verbalized by the Patient): Straight or Heterosexual Spiritual care concerns: No Agree to blood products: Yes Anes - Eval Final PreProcedure Day of Procedure 03/11/25 08:59 Patient weight: overweight Heart: regular rate and rhythm Lungs: clear to auscultation Airway: Mallampati scale class II Neurological: alert and oriented Last oral intake: >/= 8 hours ASA classification: II Emergent: no Anesthetic plan: proceed Anesthesia type and monitoring: general GIVS and standard monitoring Results Review: All pre-operative results and documents have been reviewed as part of the pre- operative evaluation. Informed Consent: The patient's anesthetic plan and its attendant risks and benefits were discussed with the patient/family/POA. Questions were solicited and answers provided to the satisfaction of the patient/family/POA.
[2025-03-11 13:48] VITALS: BP 130/84; PULSE 57; RESP 18; TEMP 36.7; O2SAT 99
[2025-03-11] MEDS: LACTATED RINGERS 1,000 ML 150 ML IV CONT (13:56)
--- NOTE | 2025-03-11 14:25 | SUR.PREOP ---
Patient and updated to time of procedure. Call light within reach and questions answered.
--- NOTE | 2025-03-11 15:15 | PM.HPGS ---
History of Present Illness History of Present Illness Consent: Risks, benefits, and alternatives have been discussed and questions answered. Patient agrees to proceed with procedure. Chief complaint: Dysphagia, unspecified Narrative: Audie Dixon is a 49 year old male here to have new EGD, first one 12/2024 when came to ER for food bolus, bx with 20 eo in esophagus probably EoE, now on omeprazole. Review of Systems Review of Systems: All systems reviewed & are unremarkable except as noted in HPI and below PMFSH Past Medical History Medical History (Updated 03/11/25 @ 15:17 by Shahab Reed MD) Eosinophilic esophagitis Dysphagia Vitamin D deficiency Abscess of back Dyslipidemia Diverticulitis (~2015) Surgical History Surgical History S/P laparoscopic-assisted sigmoidectomy (~08/2016) Diverticulitis with abscess - Dr Raymond Family History Family History Mother Family history of colonic diverticulitis Other Family history of cardiovascular disease Family history of kidney stones Hypertension Social History Social History Smoking packs per day: 0.25 Smoking cigarettes per day: 5.0 Years smoked: 20 Smoking pack-years: 5.00 Smoking status: Current every day smoker Tobacco type: cigarettes and e-cigarettes/vaping Second hand tobacco smoke exposure: No Smoking end date: 07/29/09 Alcohol intake: current Drinks per week: 6 Alcohol use details: socially Substance use: never Substance use type: does not use Lack of Transportation: No Lack of Food: Never True Current Housing: I Have Housing Concerned About Future Housing: No Difficulty Paying Gas/Electric Bills: No Difficulty Paying for Meds: No Currently Unemployed: No Education: High School Diploma/GED Difficulty w/ Childcare or Family Care: No Living arrangements: with family Additional living arrangements comments: Occupation/Education: occupation Gender identity (if verbalized by the patient): Male Sexual Orientation (if Verbalized by the Patient): Straight or Heterosexual Spiritual care concerns: No Agree to blood products: Yes Meds Home Medications and Allergies Home Medications ?Medication ?Instructions ?Recorded ?Confirmed ?Type multivitamin 1 tablet PO DAILY 03/21/23 03/11/25 History atorvastatin 10 mg tablet (Lipitor) 10 mg PO QHS #90 tabs 09/02/24 03/11/25 Rx cholecalciferol (vitamin D3) 25 50 mcg PO DAILY 09/02/24 03/11/25 History mcg (1,000 unit) capsule fenofibrate 160 mg tablet 160 mg PO DAILY #90 tabs 09/02/24 03/11/25 Rx omeprazole 20 mg capsule,delayed 20 mg PO DAILY #30 caps 01/09/25 03/11/25 Rx release Allergies Allergy/AdvReac Type Severity Reaction Status Date / Time sulfamethizole Allergy Unknown Skin Verified 03/11/25 13:46 burning trimethoprim Allergy Unknown Skin Verified 03/11/25 13:46 burning Vital Signs Vital Signs - 24 hr 03/11/25 13:48 Temperature 98.0 F Pulse Rate 57 L Respiratory Rate 18 Blood Pressure 130/84 Pulse Oximetry 99 Oxygen Delivery Room Air Exam Const: General: comfortable and no acute distress HENMT: Face/Nose/Sinus: Normal nares present Eyes: General: appearance normal, both eyes and all related structures Neck: Neck: no JVD Resp: Auscultation: clear to auscultation bilaterally Cardio: Rate: regular rate Rhythm: regular rhythm GI: Inspection: non-distended GI Palp: Yes Soft to palpation Skin: General skin exam: normal color Neuro: Speech: normal speech Extrem: General: normal to inspection Psych: Mental Status: mental status grossly normal Assessment and Plan Assessment and plan (1) Eosinophilic esophagitis: Code(s): K20.0 - Eosinophilic esophagitis Status: Acute Assessment and Plan: egd with bx
--- NOTE | 2025-03-11 15:27 | S_PTH ---
PATIENT: Audie Dixon LOC: [facility]#:[id number] AGE/SX: 49/M ROOM: RE03/11/[address]: Shahab Reed MD : 1975 BED: DIS: 03/11/2025 SPEC #: [id number] RECD: 03/12/25 08:31 STATUS: CHENTE RENatalie #: [id number] RED: 03/11/25 15:[address]: Shahab Reed DEPT: [facility] Surgical RECD BY: Anita Dotson ENTERED: 03/12/25 08:32 SP TYPE: Surgical OTHR DR: Zeynep Chaudhry MD Tissues: A - Esophageal Biopsy B - Esophageal Biopsy Procedures: Hematoxylin and Eosin Stain Gross and Microscopic Level 4
[2025-03-11 15:28] VITALS: BP 117/77; PULSE 74; RESP 17; O2SAT 98
[2025-03-11 15:38] VITALS: BP 126/81; PULSE 62; RESP 18; O2SAT 99
[2025-03-11 15:48] VITALS: BP 130/85; PULSE 63; RESP 14; O2SAT 99
== END 2025-03-11 16:02 | disposition home or self-care (01) ==
PROVIDERS: PCP Family Medicine; Referring Provider Internal Medicine Gastroenterology; Visit Provider Internal Medicine Gastroenterology
PROC: 0DJ08ZZ Inspection of Upper Intestinal Tract, Via Natural or Artificial Opening Endoscopic (ICD-10-PCS; CPT 43239; principal; 2025-03-11 14:15)
DX: K21.00 Gastro-esophageal reflux disease with esophagitis, without bleeding (principal); E55.9 Vitamin D deficiency, unspecified; E78.5 Hyperlipidemia, unspecified; F17.210 Nicotine dependence, cigarettes, uncomplicated; F17.290 Nicotine dependence, other tobacco product, uncomplicated; Z98.890 Other specified postprocedural states; Z87.19 Personal history of other diseases of the digestive system; Z82.49 Family history of ischemic heart disease and other diseases of the circulatory system
CPT/HCPCS: 43239; 88305; J2704; J7120